=== PATIENT | female | born 1965 | race Caucasian/White ===

== ENCOUNTER → 2018-02-22 08:09 | Outpatient (POV) | payer BC, SELFPAY | PROVIDERS: Visit Provider Dentist | DX: Z00.00 Encounter for general adult medical examination without abnormal findings (principal) ==

== ENCOUNTER 2019-08-19 18:29 | Emergency (ER) | payer MEDICAID, SELFPAY ==
[2019-08-19 18:39] VITALS: BP 121/69; PULSE 83; RESP 18; TEMP 36.7; O2SAT 97; BMI 30.5
--- NOTE | 2019-08-19 18:41 | XR_ITS ---
PROCEDURE: XR WRIST LT MIN 3V CLINICAL INDICATION: FALL Posttraumatic pain, fall with injury and pain a of the COMPARISON: XR ELBOW LT MIN 3V from 08/19/2019 XR FOREARM LT 2V from 08/19/2019 XR HAND LT MIN 3V from 08/19/2019 FINDINGS: No fracture or dislocation. No lytic or blastic change. There is normal mineralization. The joint spaces are well-preserved. No significant degenerative/arthritic changes. No erosive changes evident. Other findings:None. IMPRESSION: No acute findings. Dictated by: Maksim Florence MD 08/19/2019 21:39 Electronically signed by Maksim Florence MD in [place] 08/19/2019 21:39
--- NOTE | 2019-08-19 18:41 | XR_ITS ---
PROCEDURE: XR FACIAL BONES MIN 3V CLINICAL INDICATION: FALL Posttraumatic pain COMPARISON: No exams were available for comparison FINDINGS: No obvious fracture or sinus air-fluid level. No lytic or blastic changes. IMPRESSION: No obvious fracture. Consider CT for more thorough evaluation if symptoms persist Dictated by: Maksim Florence MD 08/19/2019 21:40 Electronically signed by Maksim Florence MD in [place] 08/19/2019 21:40
--- NOTE | 2019-08-19 19:38 | HMH.EDUTC ---
[facility] Clinical Impression: Left elbow pain, Left wrist pain Nasal bone fracture Qualifiers: Encounter type: initial encounter Fracture type: closed Qualified Code(s): S02.2XXA - Fracture of nasal bones, initial encounter for closed fracture Fall Qualifiers: Encounter type: initial encounter Qualified Code(s): W19.XXXA - Unspecified fall, initial encounter Disposition: Home, Self-Care Condition on Discharge: Good Instructions: DI for Nose Fracture, DI for Wrist Sprain, DI for Elbow Sprain Additional Instructions: Rest the extremity, apply ice for 15 minutes as tolerated three or four times per day, Wear the thu wrap for compression, Elevate the extremity as tolerated while you are resting. Take ibuprofen for pain. I sent in a prescription to your pharmacy. Follow up with Dr. Bowling (ENT). I put in a referral but you need to call her office and schedule an appointment. Follow up with orthopedics (Dr. Nichols) if you continue to have wrist, elbow or hand pain. Follow up with your regular doctor. GO TO THE ER FOR ANY WORSENING SYMPTOMS Prescriptions: Ibuprofen [Ibuprofen 600mg Tablet] 600 mg PO Q6HP PRN #30 tab PRN Reason: Mild Pain Transmission Status: Received by [employer] [id number] Referrals: Arpita Jackson [Primary Care Provider] - Myah Bowling MD [Consulting Physician] - Kevin Nichols MD [Staff Physician] - Time of Disposition: 19:50 Medical Decision Making - Medical Records Medical records reviewed: No: I reviewed the patient's medical records. - Alex Inquiry Pt receiving controlled substance: No Vital Signs: 08/19/19 18:39 08/19/19 20:22 Temperature 98.0 F 98.0 F Temperature Source Oral Oral Pulse Rate 83 Pulse Rate [Radial] 83 Respiratory Rate 18 18 Blood Pressure 121/69 Blood Pressure [Right Arm] 121/69 Blood Pressure Mean [Right Arm] 86 Blood Pressure Source Automatic Cuff Blood Pressure Source [Right Arm] Automatic Cuff Blood Pressure Position Sitting Blood Pressure Position [Right Arm] Sitting 02 Sat by Pulse Oximetry 97 Oxygen Delivery Method Room Air Room Air Orders (Tests/Meds): ORDERS Category Date Time Status XR elbow LT min 3V Stat Exams 08/19/19 18:41 Taken XR facial bones min 3V Stat Exams 08/19/19 18:41 Taken XR forearm LT 2V Stat Exams 08/19/19 18:41 Taken XR hand LT min 3V Stat Exams 08/19/19 18:41 Taken XR wrist LT min 3V Stat Exams 08/19/19 18:42 Taken - Radiology Data #1 Image(s): Nasal Bones Image Reviewed: Yes I reviewed the patient's radiology image Preliminary Findings: Abnormal possible nasal fracture #2 Image(s): Wrist Image Reviewed: Yes I reviewed the patient's radiology image Preliminary Findings: No Fracture Seen #3 Image(s): Elbow Image Reviewed: Yes I reviewed the patient's radiology image Preliminary Findings: No Fracture Seen fat pads appear wnl [facility] [place] - General Stated complaint: AO 08/18 @ 1730 fell, left arm, nose, & forehead inj Time Seen by Provider: 08/19/19 18:55 Mode of Arrival: Ambulatory Source of Information: Patient Limitations: No Limitations Description of Symptoms (Recalled from Triage Doc. by RN): While at a friends house she states she fell between the kitchen and laundry room face first onto a concrete floor. States she was checked and cleared by EMS. HEENT Symptoms (Recalled from RN notes): No Resp Symptoms (Recalled from RN notes): No Skin Symptoms (Recalled from RN notes): Yes MS Symptoms (Recalled from RN notes): Yes Functional Status (Recalled from RN notes): wnl - History of Present Illness Provider Complaint: She states that she tripped at home over an extension cord. She came down on her left elbow and her nose. She had some epistaxis right after this occured, but it has stopped. She is having left elbow pain and tenderness of the bridge of her nose now. - Related Data Previous Rx's Medication Instructions Recorded Ibuprofen
[2019-08-19 20:22] VITALS: BP 121/69; PULSE 83; RESP 18; TEMP 36.7; O2SAT 97
== END 2019-08-19 20:22 | disposition home or self-care (01) ==
PROVIDERS: Emergency Provider Nurse Practitioner Family; PCP Nurse Practitioner Family
DX: S02.2XXA Fracture of nasal bones, initial encounter for closed fracture (principal); S50.02XA Contusion of left elbow, initial encounter; S60.212A Contusion of left wrist, initial encounter; W01.0XXA Fall on same level from slipping, tripping and stumbling without subsequent striking against object, initial encounter; Y92.89 Other specified places as the place of occurrence of the external cause; Z88.8 Allergy status to other drugs, medicaments and biological substances
CPT/HCPCS: 70150; 73080; 73090; 73110; 73130; 99201

== ENCOUNTER 2019-08-30 11:43 | Outpatient (RCR) | payer MEDICAID, SELFPAY | END 2019-08-30 12:10 | disposition home or self-care (01) | LOC: OT 11:43 | PROVIDERS: Visit Provider Orthopaedic Surgery | DX: S63.502A Unspecified sprain of left wrist, initial encounter (principal) | CPT/HCPCS: 97763 ==

== ENCOUNTER 2019-09-13 15:00 | Outpatient (RCR) | payer MEDICAID, SELFPAY ==
--- NOTE | 2019-09-06 12:16 | HMH.OTOPEV ---
OT Inpatient Evaluation Rehab OT Outpatient Eval Start: 09/06/19 11:41 Freq: Status: Active Protocol: Document 09/06/19 11:42 ANABELNEWTON (Rec: 09/06/19 12:16 ELPIDIO [id number]) Electronically Signed By Shila Soria OT 09/06/19 11:42 Outpatient Therapy Subjective History Subjective History 54 year old female referred to OP OT services after having a fall with tripping over extension cord resulting in left wrist sprain ~2 weeks ago. OT initial evaluation completed. Chief Complaint Pain Symptom Type Ache Symptoms Relieved By Heat,Ice,OTC Meds Symptoms Aggravated By Physical Activity Prior Functional Limitations None Current Functional Limitations Reaching,Lifting,Recreation Activity Symptom Description Intermittent Level of pain today (0-10) 0 Pain scale - at its best (0-10) 0 Pain scale - at its worst (0-10) 7 Wrist/Hand Eval Wrist Range of Motion Left Wrist Limitations of Range of Motion Pain Wrist Extension Active Range of Motion ( 50 degrees) Wrist Flexion Active Range of Motion ( 50 degrees) Wrist Radial Deviation Active Range of 20 Motion (degrees) Wrist Ulnar Deviation Passive Range of 30 Motion (degrees) Forearm Supination Active Range of 60 Motion (degrees) Forearm Pronation Active Range of Motion 60 (degrees) Wrist Manual Muscle Testing Left Wrist Extension Strength Grade 3+ Fair+ Wrist Flexion Strength Grade 3+ Fair+ Wrist Radial Deviation Strength Grade 5 Normal Wrist Ulnar Deviation Strength Grade 5 Normal Forearm Supination Strength Grade 3+ Fair+ Forearm Pronation Strength Grade 3+ Fair+ Passenger Car Upholsterer Apprentice/Pinch Strength Passenger Car Upholsterer Apprentice Strength Measurement (lbs) 35 Tip Pinch (2-point) Ability Minimal Impairment Tip Pinch (2-point) Strength Measurement 4 (lbs) Lateral Pinch Ability Minimal Impairment Lateral Pinch Strength Measurement (lbs) 10 Special Tests Froment's Sign Positive Left OT Outpatient Assessment Impairments Problems/Impairments Impaired Range of Motion, Impaired Strength,Impaired Endurance,Subjective C/O Pain Prognosis Rehab Potential Good Clinical Impression Consistent with Diagnosis Yes Short Term Goals Number of Weeks 3 Increase Range of Motion Yes: L wrist flex: 70; ext: 60 ; SUP: 70 and Pro: 70 Increase Strength Yes: Improve
== END 2019-09-13 15:05 | disposition home or self-care (01) ==
LOC: OT 15:00
PROVIDERS: PCP Nurse Practitioner Family; Visit Provider Orthopaedic Surgery
DX: S63.502A Unspecified sprain of left wrist, initial encounter (principal)
CPT/HCPCS: 97014; 97033; 97035; 97165; 97530; G0283

== ENCOUNTER → 2022-09-19 13:46 | Outpatient (POV) | payer MEDICAID, SELFPAY ==
--- NOTE | 2022-09-19 14:03 | EXP.PAIN.OV ---
HPI Data of Consult Requesting Physician: Madison Vasquez APRN Consult Narrative Reason for consult: Low back pain History of present illness: Ms. Smith is a 57 year old female who presents today as a new patient. She is a referral from Arpita Jackson's office. Today she rates her pain a 5 out of 10. Patient states her pain is all in her low back and has been going on for a few months. Patient denies any specific trauma or injury that initially led to her symptoms. She does describe it as an aching, throbbing sensation that is worse with increased activities such as bending, twisting or lifting. Patient denies any radiating symptoms into her legs. Patient has tried [id number] medications such as Tylenol and ibuprofen along with heat and ice and topicals with minimal relief. Patient is currently on a muscle relaxer of cyclobenzaprine 10 mg 3 times daily as needed and states it does help some. Patient is also prescribed diclofenac gel and meloxicam 7.5 mg daily however she states she does have a previous history of kidney disease. She does also state that she will occasionally have bilateral knee pain however she gets gel injections from an orthopedic doctor that does provide significant relief. Patient is not on any scheduled medications. Patient denies any previous back surgery or history of injections for her back pain. Her Alex is [id number]. Its been reviewed and appropriate. CC: Madison Vasquez APRN [facility] Disclaimer: The information contained in this section may have been updated after the patient was seen, as this information can be updated by other users. Social History Smoking Status: Never smoker alcohol intake: never current occupational status: other Travel in the last 8 weeks: None Review of Systems Review of Systems Review of systems (narrative): Review of Systems: General: No recent weight changes, no fever, no sleep disturbances Respiratory: No cough, no shortness of air, no recurring pulmonary infections Cardiovascular/peripheral vascular: No chest pain, no palpitations, no edema, no shortness of breath Gastrointestinal: No new onset incontinence, normal bowel movements reported Genitourinary: No new onset incontinence Musculoskeletal: Low back pain Psychiatric: [Normal mood/affect] Neurological: [Denies weakness in extremities], [denies balance issues] Meds Home Medications and Allergies Home Medications Medication Instructions Recorded Confirmed Type ibuprofen 600 mg tablet 600 mg PO Q6HP PRN Mild Pain #30 08/19/19 09/19/22 Rx tabs atorvastatin 20 mg tablet 20 mg PO DAILY Cholesterol 09/19/22 09/19/22 History cyclobenzaprine 10 mg tablet 10 mg PO TIDP PRN Pain 09/19/22 09/19/22 History diclofenac sodium 1 % topical gel 1 ea topical DIRECTED Pain 09/19/22 09/19/22 History duloxetine 60 mg capsule,delayed 60 mg PO DAILY MOOD 09/19/22 09/19/22 History release fluticasone propionate 50 50 mcg intranasal DIRECTED 09/19/22 09/19/22 History mcg/actuation nasal ALLERGIES spray,suspension meloxicam 7.5 mg tablet 7.5 mg PO DAILY Pain 09/19/22 09/19/22 History metformin 500 mg tablet 500 mg PO DIRECTED Diabetes 09/19/22 09/19/22 History olmesartan 5 mg tablet 5 mg PO DAILY BLOOD PRESSURE 09/19/22 09/19/22 History omeprazole 40 mg capsule,delayed 40 mg PO DAILY STOMACH 09/19/22 09/19/22 History release ondansetron 4 mg disintegrating 4 mg PO Q8HP PRN Nausea 09/19/22 09/19/22 History tablet tramadol 50 mg tablet 50 mg PO Q6H PRN Pain 09/19/22 09/19/22 History New Prescriptions to Start Prescriptions: Allergies Allergy/AdvReac Type Severity Reaction Status Date / Time escitalopram [From Lexapro] Allergy Verified 09/16/19 09:04 fluoxetine [From Prozac] Allergy Verified 09/16/19 09:04 hydrocodone Allergy Verified 09/16/19 09:04 pseudoephedrine Allergy Verified 09/16/19 09:04 [From Sudafed] Objective Narrative: Physical Exam: General
[2022-09-19 14:42] VITALS: BP 135/89; PULSE 95; RESP 18; O2SAT 98; BMI 29.3
== END ==
PROVIDERS: Visit Provider Nurse Practitioner Family
DX: M51.36 Other intervertebral disc degeneration, lumbar region (principal); M47.816 Spondylosis without myelopathy or radiculopathy, lumbar region
CPT/HCPCS: 99202; G0463

== ENCOUNTER 2022-10-04 09:01 | Day surgery (SDC) | payer MEDICAID, SELFPAY ==
[2022-10-04 09:18] VITALS: BP 152/87; PULSE 90; RESP 18; TEMP 36.4; O2SAT 97; BMI 30.9
[2022-10-04 09:50] VITALS: BP 137/94; PULSE 100; RESP 20
[2022-10-04 09:54] VITALS: BP 135/80; PULSE 76; RESP 18; O2SAT 99
--- NOTE | 2022-10-04 09:56 | EXP.PAIN.PRO ---
Procedure Date: 10/04/22 Time: 09:40 Anesthesiologist:: Alban Rivero CRNA Complications:: None Pre-procedure Diagnosis:: Degenerative disc lumbar spine multilevels. Lumbar radiculopathy. Lumbar spondylosis. Multilevel lumbar facet arthropathy. Post-procedure Diagnosis:: Same. Indications for Procedure:: Patient is a very pleasant 57-year-old female that comes our clinic today for lumbar medial branch blocks/facet block L4-5, L5-S1 bilaterally. Patient complains of posterior lumbar back pain. Difficulty with flexion, extension, left and right rotation. Pain intensifies with standing any length of time. She rates her pain 7/10. Procedure Details:: Informed consent was obtained and the risk and benefits of the procedure was explained to the patient. Patient was taken to the procedure room where noninvasive monitors were placed, including noninvasive blood pressure cuff as well as pulse oximeter. The area over the lumbar spine was cleansed using chlorhexidine as a cleansing solution. I anesthetized the skin and subcutaneous tissues with 1% Lidocaine. I placed 22-gauge spinal needles into the facet joint/ medial branches of [L3-L4, L4-L5, and L5-S1] bilaterally. Needle placement was confirmed with fluoroscopy. After confirmation of needle placement, each site was injected with 1 mL of 1% lidocaine and 0.25 % Marcaine and 10 mg of Depo-Medrol. A total of 80 mg of depo medrol was used for bilateral medial branch blocks of [L3-L4, L4-L5, and L5-S1] bilaterally. Patient tolerated the procedure without difficulty. There were no complications. Plan and Disposition:: Patient was discharged without incident.
== END 2022-10-04 09:55 | disposition home or self-care (01) ==
PROVIDERS: PCP Nurse Practitioner Family; Visit Provider Nurse Anesthetist, Certified Registered
DX: M47.896 Other spondylosis, lumbar region (principal); M51.16 Intervertebral disc disorders with radiculopathy, lumbar region
CPT/HCPCS: 64493; 64494; J1040

== ENCOUNTER → 2022-10-19 10:58 | Outpatient (POV) | payer MEDICAID, SELFPAY ==
--- NOTE | 2022-10-19 11:21 | A.OFFVIS_ITS ---
[facility] Pain Management SOAP Note Subjective:: Patient is a pleasant 57-year-old female who presents today for follow-up of lumbar medial branch block bilaterally L4-L5 and L5-S1 on 10/04/2022. We are currently treating the patient for degenerative disc disease of lumbar spine with lumbar radiculopathy symptoms, lumbar facet arthropathy, lumbar spondylosis. Today she rates her pain a 0 out of 10. She states she has had at least 90 to 100% relief following this injection. Patient states she has been able to increase her activity with decreased pain symptoms and feels like she has better overall function. This was her first injection from our office. Patient is currently managed with diclofenac gel and meloxicam 7.5 mg daily her Alex is [id number]. It has been reviewed and appropriate. Review of Systems: General: No recent weight changes, no fever, no sleep disturbances Respiratory: No cough, no shortness of air, no recurring pulmonary infections Cardiovascular/peripheral vascular: No chest pain, no palpitations, no edema, no shortness of breath Gastrointestinal: No new onset incontinence, normal bowel movements reported Genitourinary: No new onset incontinence Musculoskeletal: Low back pain Psychiatric: [Normal mood/affect] Neurological: [Denies weakness in extremities], [denies balance issues] Objective:: Physical Exam: General: Alert and oriented x3, no acute distress, pleasant and cooperative Lungs: Respirations even and unlabored, symmetrical chest expansion Eyes: PERRL Musculoskeletal: Flexion and extension of lumbar [spine] somewhat guarded secondary to pain, [antalgic gait noted] Neurological: Speech clear, no gross sensory deficit Assessment:: Degenerative disc disease of lumbar spine with lumbar radiculopathy symptoms, lumbar facet arthropathy, lumbar spondylosis Plan:: Patient has had significant improvement of her low back pain following her injections and does not require any additional injective therapy at this time. Patient will return to clinic in 1 month for reevaluation of symptoms and plan of care. Patient has been instructed to contact the clinic with any concerns before the next appointment. Dr. Briggs has reviewed this note and agrees with this plan of care. This note was dictated using voice recognition software and make contain errors or omissions. [facility] Disclaimer: The information contained in this section may have been updated after the patient was seen, as this information can be updated by other users. Medical History Depression Diabetes GERD (gastroesophageal reflux disease) HLD (hyperlipidemia) HTN (hypertension) Family History (Updated 10/04/22 @ 09:19 by Emily Barbosa, RN) Other No significant family history Social History (Updated 10/04/22 @ 09:19 by Emily Barbosa, RN) Smoking Status: Never smoker alcohol intake: never current occupational status: employed Travel in the last 8 weeks: None
[2022-10-19 11:52] VITALS: BP 117/90; PULSE 118; RESP 18; O2SAT 96; BMI 30.2
== END ==
PROVIDERS: PCP Nurse Practitioner Family; Visit Provider Nurse Practitioner Family
DX: M51.16 Intervertebral disc disorders with radiculopathy, lumbar region (principal); M47.26 Other spondylosis with radiculopathy, lumbar region
CPT/HCPCS: 99212; G0463

== ENCOUNTER 2022-11-13 09:30 | Emergency (ER) | payer MEDICAID, SELFPAY ==
[2022-11-13 09:39] VITALS: BP 149/80; PULSE 105; RESP 20; TEMP 36.8; O2SAT 98; BMI 30.2
--- NOTE | 2022-11-13 09:46 | HMH.EDGENADL ---
Discharge Plan Disposition Patient Disposition: Home, Self-Care Condition: Good Prescriptions Prescriptions: New cephalexin 500 mg capsule 500 mg PO QID 5 Days Qty: 20 0RF No Action ibuprofen 600 MG tablet 600 mg PO Q6HP PRN (Reason: Mild Pain) Qty: 30 0RF cyclobenzaprine 10 mg tablet 10 mg PO TIDP PRN (Reason: Pain) Patient Comments: TAKE 1 TABLET BY MOUTH THREE TIMES DAILY NEEDED metformin 500 mg tablet 500 mg PO DIRECTED atorvastatin 20 mg tablet 20 mg PO DAILY omeprazole 40 mg capsule,delayed release(DR/EC) 40 mg PO DAILY tramadol 50 mg Tablet 50 mg PO Q6H PRN (Reason: Pain) meloxicam 7.5 mg tablet 7.5 mg PO DAILY ondansetron 4 mg tablet,disintegrating 4 mg PO Q8HP PRN (Reason: Nausea) Patient Comments: DISSOLVE 1 TABLET ON THE TONGUE EVERY 8 HOURS NEEDED FOR NAUSEA OR VOMITING fluticasone propionate 50 mcg/actuation spray,suspension 50 mcg INTRANASAL DIRECTED olmesartan 5 mg tablet 5 mg PO DAILY duloxetine 60 mg capsule,delayed release(DR/EC) 60 mg PO DAILY Patient Comments: TAKE ONE CAPSULE BY MOUTH EVERY DAY diclofenac sodium 1 % gel 1 ea TOPICAL DIRECTED Referrals Follow up/Referrals: Arpita Jackson [Primary Care Provider] - See instructions Activity Restrictions/Add. Instructions Additional Instructions/Restrictions: You were evaluated in the emergency department today for wound on the right breast. On ultrasound there was no abscess, and I did not feel any associated mass. Take the prescribed antibiotics as directed, do not skip doses, do not stop taking them early. Keep the wound clean and dry, use the provided supplies and change the dressing daily until it is healed. You can also use a regular Band-Aid over it. Follow-up with your primary care physician in 2 days for reassessment to ensure that it is healing, and make an appointment for regular screening mammogram. Return to the emergency department with any new or worsening symptoms. Clinical Impressions Clinical Impression: Open wound of right female breast Instructions Patient Instructions: DI for Skin Abscess Discharge ED Provider: Adithya Mcmahon Adult [facility] General Chief complaint: Skin/Abscess/Foreign Body Stated complaint: knot on right breast Time Seen by Provider: 11/13/22 09:41 Mode of Arrival: Ambulatory Source of Information: Patient Limitations: No Limitations Description of Symptoms (Recalled from ER Triage Doc. by RN): pt to ed c/o lesion to the lateral right breast. pt reports first noticing it last night. pt denies any tenderness to the area. pt states she is unsure how long the lesion has been present. History of Present Illness HPI narrative: This 57-year-old female with a history of depression, hypertension presents to the emergency department with concerns of wound on the right breast. Patient states she noticed it for the first time last night when she was in the bath and a scab came off of it. She is unsure how long the lesion has been present. She states she does get mammograms every 2 years and is currently due for her next one. She states she had a biopsy one time of a benign lesion, but no history of cancer. Patient denies any masses, breast pain, abnormal discharge, fevers, chills, or other infectious symptoms. She states she does not wear wire bras or bathing suit and does not remember anything specific that would have irritated this area of her skin. Related Data Home Medications Medication Instructions Recorded Confirmed atorvastatin 20 mg tablet 20 mg PO DAILY Cholesterol 09/19/22 10/19/22 cyclobenzaprine 10 mg tablet 10 mg PO TIDP PRN Pain 09/19/22 10/19/22 diclofenac sodium 1 % topical gel 1 ea topical DIRECTED Pain 09/19/22 10/19/22 duloxetine 60 mg capsule,delayed 60 mg PO DAILY MOOD 09/19/22 10/19/22 release fluticasone propionate 50 50 mcg intranasal DIRECTED 09/19/22
[2022-11-13 10:00] VITALS: BP 141/87; PULSE 97; RESP 20; TEMP 36.8; O2SAT 97
== END 2022-11-13 10:02 | disposition home or self-care (01) ==
PROVIDERS: Emergency Provider Emergency Medicine; PCP Nurse Practitioner Family
DX: S21.001A Unspecified open wound of right breast, initial encounter (principal); I10 Essential (primary) hypertension; F32.A Depression, unspecified; X58.XXXA Exposure to other specified factors, initial encounter; E11.9 Type 2 diabetes mellitus without complications; K21.9 Gastro-esophageal reflux disease without esophagitis; E78.5 Hyperlipidemia, unspecified
CPT/HCPCS: 99284

== ENCOUNTER → 2022-11-18 09:16 | Outpatient (POV) | payer MEDICAID, SELFPAY ==
--- NOTE | 2022-11-18 09:43 | A.OFFVIS_ITS ---
[facility] Pain Management SOAP Note Subjective:: This patient is a very pleasant 57-year-old female comes our clinic today for follow-up visit regarding her low back pain. She describes her low back pain as constant, dull, aching. She rates pain today 09/19. Patient states pain increases with flexion, extension, left and right rotation. Patient received lumbar medial branch block bilaterally L4-5, L5-S1 on 10/19/2022. She reports 4 weeks of significant improvement terms of her overall low back pain. She estimates 90% improvement. However, the pain is returning to some degree. She is requesting a repeat of the medial branch blocks bilaterally L4-5, L5-S1. I think this is reasonable given the fact she had 90+ percent with previous round. Her Alex #[id number] has been reviewed and appropriate. Objective:: Patient is awake alert [place] x3. In no acute distress. Flexion-extension lumbar spine very guarded secondary to pain. Deep tendon reflexes upper and lower extremities normal. Motor strength upper and lower extremities normal. There is no gross sensory deficit. Gait is normal. Assessment:: Degenerative disc lumbar spine multilevels. Lumbar radiculopathy. Lumbar spondylosis. Multilevel lumbar facet arthropathy. Plan:: We will plan medial branch block L4-5, L5-S1 bilaterally. Patient will continue with NSAIDs to help control the pain. [facility] Disclaimer: The information contained in this section may have been updated after the patient was seen, as this information can be updated by other users. Medical History (Updated 11/13/22 @ 09:46 by Adithya Mcmahon MD) Depression Diabetes GERD (gastroesophageal reflux disease) HLD (hyperlipidemia) HTN (hypertension) Family History (Updated 10/04/22 @ 09:19 by Emily Barbosa RN) Other No significant family history Social History (Updated 10/04/22 @ 09:19 by Emily Barbosa RN) Smoking Status: Never smoker alcohol intake: never substance use type: denies use current occupational status: employed Travel in the last 8 weeks: None
[2022-11-18 09:57] VITALS: BP 128/88; PULSE 104; RESP 18; O2SAT 92; BMI 30.2
== END ==
PROVIDERS: PCP Nurse Practitioner Family; Visit Provider Nurse Practitioner Family
DX: M51.16 Intervertebral disc disorders with radiculopathy, lumbar region (principal); M47.26 Other spondylosis with radiculopathy, lumbar region
CPT/HCPCS: 99212; G0463

== ENCOUNTER 2022-12-06 13:06 | Day surgery (SDC) | payer MEDICAID, SELFPAY ==
[2022-12-06 13:23] VITALS: BP 137/87; PULSE 104; RESP 16; TEMP 36.6; O2SAT 97
[2022-12-06 13:27] VITALS: BP 120/82; PULSE 105; RESP 18; O2SAT 95
[2022-12-06 13:28] VITALS: BP 120/82; PULSE 106; RESP 18; O2SAT 95
[2022-12-06 13:32] VITALS: BP 134/83; PULSE 100; RESP 18; O2SAT 97
--- NOTE | 2022-12-06 13:36 | P.PCN_ITS ---
Procedure Date: 12/06/22 Time: 13:15 Anesthesiologist:: Alban Rivero CRNA Complications:: None Pre-procedure Diagnosis:: Degenerative disc lumbar spine multilevels. Lumbar radiculopathy. Lumbar spondylosis. Multilevel lumbar facet arthropathy. Post-procedure Diagnosis:: Same. Indications for Procedure:: Patient is a very pleasant 57-year-old female that comes our clinic today for lumbar medial branch block L4-5, L5-S1. Patient is had this block in the past with several months of relief. She describes low back pain as constant, dull, aching. Patient has difficulty with flexion, extension, left and right rotation. Procedure Details:: Informed consent was obtained and the risk and benefits of the procedure was explained to the patient. Patient was taken to the procedure room where noninvasive monitors were placed, including noninvasive blood pressure cuff as well as pulse oximeter. The area over the lumbar spine was cleansed using chlorhexidine as a cleansing solution. I anesthetized the skin and subcutaneous tissues with 1% Lidocaine. I placed 22-gauge spinal needles into the facet joint/ medial branches of L4-L5, and L5-S1 bilaterally. Needle placement was confirmed with fluoroscopy. After confirmation of needle placement, each site was injected with 1 mL of 1% lidocaine and 0.25 % Marcaine and 10 mg of Depo- Medrol. A total of 80 mg of depo medrol was used for bilateral medial branch blocks of L4-L5, and L5-S1 bilaterally. Patient tolerated the procedure without difficulty. There were no complications. Plan and Disposition:: Patient was discharged without incident.
== END 2022-12-06 13:32 | disposition home or self-care (01) ==
PROVIDERS: PCP Nurse Practitioner Family; Visit Provider Nurse Anesthetist, Certified Registered
DX: M47.896 Other spondylosis, lumbar region (principal); M51.16 Intervertebral disc disorders with radiculopathy, lumbar region
CPT/HCPCS: 64493; 64494; J1040

== ENCOUNTER → 2022-12-19 14:27 | Outpatient (POV) | payer MEDICAID, SELFPAY ==
[2022-12-19 14:42] VITALS: BP 146/85; PULSE 105; RESP 20
--- NOTE | 2022-12-19 14:54 | A.OFFVIS_ITS ---
[facility] Pain Management SOAP Note Subjective:: This patient is a very pleasant 57-year-old female comes our clinic today for follow-up visit after receiving bilateral lumbar L4-5, L5-S1 medial branch blocks on 12/06/2022. Patient reporting 75% improvement terms of her overall low back pain. However her right low lumbar back pain has returned about 80%. Left side lumbar spine no pain. Patient rates the pain 7/10. However, she reports no pain with sitting. No pain with lying down. Pain when standing on her feet for long periods of time. 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 Patient taking Tylenol on a regular basis for the symptoms. Patient's Alex #[id number] has been reviewed and appropriate. Patient describes the low right back pain is intermittent, dull, aching. Objective:: Patient is awake alert [place] x3. In no acute distress. Flexion-extension lumbar spine somewhat guarded secondary to pain. Deep tendon reflexes upper and lower extremities normal. Motor strength upper and lower extremities normal. There is no gross sensory deficit. Gait is normal. Assessment:: Degenerative disc lumbar spine multilevels. Lumbar radiculopathy. Lumbar spondylosis. Multilevel lumbar facet arthropathy Plan:: Discussed in detail with the patient regarding repeating lumbar medial branch block on the right L4-5, L5-S1. Discussed in detail with the patient regarding risk versus benefits. Answered her questions. She wishes to proceed. [facility] Disclaimer: The information contained in this section may have been updated after the patient was seen, as this information can be updated by other users. Medical History Depression Diabetes GERD (gastroesophageal reflux disease) HLD (hyperlipidemia) HTN (hypertension) Family History Other No significant family history Social History Smoking Status: Never smoker alcohol intake: never substance use type: denies use current occupational status: employed Travel in the last 8 weeks: None
== END ==
PROVIDERS: PCP Nurse Practitioner Family; Visit Provider Nurse Anesthetist, Certified Registered
DX: M51.16 Intervertebral disc disorders with radiculopathy, lumbar region (principal); M47.26 Other spondylosis with radiculopathy, lumbar region
CPT/HCPCS: 99212; G0463

== ENCOUNTER 2023-01-25 10:13 | Emergency (ER) | payer MEDICAID, SELFPAY ==
[2023-01-25 10:19] VITALS: BP 140/83; PULSE 92; RESP 20; TEMP 36.9; O2SAT 100; BMI 29.3
[2023-01-25 10:26] LABS: Coronavirus 19, PCR Not Detected (NotDetected); Influenza A, PCR Not Detected (NotDetected); Influenza B, PCR Not Detected (NotDetected)
[2023-01-25 10:36] LABS: Strep Scrn Group A (Rapid) Negative (Negative)
[2023-01-25 10:45] VITALS: BP 135/88; PULSE 98; O2SAT 95
--- NOTE | 2023-01-25 10:46 | HMH.EDGENADL ---
Discharge Plan Disposition Patient Disposition: Home, Self-Care Chief Complaint: Upper Respiratory Infection Prescriptions Prescriptions: No Action cephalexin 500 mg capsule 500 mg PO QID ibuprofen 600 MG tablet 600 mg PO Q6HP PRN (Reason: Mild Pain) Qty: 30 0RF cyclobenzaprine 10 mg tablet 10 mg PO TIDP PRN (Reason: Pain) Patient Comments: TAKE 1 TABLET BY MOUTH THREE TIMES DAILY NEEDED metformin 500 mg tablet 500 mg PO DIRECTED atorvastatin 20 mg tablet 20 mg PO DAILY omeprazole 40 mg capsule,delayed release(DR/EC) 40 mg PO DAILY tramadol 50 mg Tablet 50 mg PO Q6H PRN (Reason: Pain) meloxicam 7.5 mg tablet 7.5 mg PO DAILY ondansetron 4 mg tablet,disintegrating 4 mg PO Q8HP PRN (Reason: Nausea) Patient Comments: DISSOLVE 1 TABLET ON THE TONGUE EVERY 8 HOURS NEEDED FOR NAUSEA OR VOMITING fluticasone propionate 50 mcg/actuation spray,suspension 50 mcg INTRANASAL DIRECTED olmesartan 5 mg tablet 5 mg PO DAILY duloxetine 60 mg capsule,delayed release(DR/EC) 60 mg PO DAILY Patient Comments: TAKE ONE CAPSULE BY MOUTH EVERY DAY diclofenac sodium 1 % gel 1 ea TOPICAL DIRECTED Referrals Follow up/Referrals: Arpita Jackson [Primary Care Provider] - See instructions Activity Restrictions/Add. Instructions Additional Instructions/Restrictions: Call your family doctor to establish care for this visit to the emergency department and schedule follow-up within 48 hours to ensure improvement. If you have any worsening of your condition or any other concerning signs or symptoms, return to the emergency department or your primary care doctor for further evaluation. Take daily Zyrtec for symptomatic relief. Clinical Impressions Clinical Impression: Acute viral pharyngitis, URI, acute Discharge ED Provider: Fernando Batres General Adult HPI General Chief complaint: Upper Respiratory Infection Stated complaint: sore throat, drainage, vomiting Time Seen by Provider: 01/25/23 10:24 Mode of Arrival: Ambulatory Source of Information: Patient Limitations: No Limitations Description of Symptoms (Recalled from ER Triage Doc. by RN): pt to ed c/o sore throat, body aches that started yesterday morning. pt reports one episode of emesis last night. pt denies fever/urinary symptoms. History of Present Illness HPI narrative: 57-year-old female with history of diabetes, hypertension, hyperlipidemia, polycystic kidney disease presenting with sore throat, nasal drainage, body aches. This been going on about 24 hours. Patient has been taking Tylenol at home, this does not help. Not able to take Tylenol because of kidney disease. Patient states she has had constant drainage which has not gotten any better. Had some drainage last night but she actually vomited mucus on the bed. Nonbloody, nonbilious. Associated sore throat without voice changes, difficulty or pain range of motion of neck, or confusion. Patient has not had diarrhea, constipation, abdominal pain, fevers or chills. Related Data Home Medications Medication Instructions Recorded Confirmed atorvastatin 20 mg tablet 20 mg PO DAILY Cholesterol 09/19/22 12/06/22 cyclobenzaprine 10 mg tablet 10 mg PO TIDP PRN Pain 09/19/22 12/06/22 diclofenac sodium 1 % topical gel 1 ea topical DIRECTED Pain 09/19/22 12/06/22 duloxetine 60 mg capsule,delayed 60 mg PO DAILY MOOD 09/19/22 12/06/22 release fluticasone propionate 50 50 mcg intranasal DIRECTED 09/19/22 12/06/22 mcg/actuation nasal ALLERGIES spray,suspension meloxicam 7.5 mg tablet 7.5 mg PO DAILY Pain 09/19/22 12/06/22 metformin 500 mg tablet 500 mg PO DIRECTED Diabetes 09/19/22 12/06/22 olmesartan 5 mg tablet 5 mg PO DAILY BLOOD PRESSURE 09/19/22 12/06/22 omeprazole 40 mg capsule,delayed 40 mg PO DAILY STOMACH 09/19/22 12/06/22 release ondansetron 4 mg disintegrating 4 mg PO Q8HP PRN Nausea 09/19/22 12/06/22
[2023-01-25 11:00] VITALS: BP 131/88; PULSE 100; O2SAT 92
[2023-01-25 11:23] VITALS: BP 131/81; PULSE 80; RESP 16; TEMP 36.7
== END 2023-01-25 11:24 | disposition home or self-care (01) ==
LOC: ER 11:09
PROVIDERS: Emergency Provider Emergency Medicine; PCP Nurse Practitioner Family
DX: J06.9 Acute upper respiratory infection, unspecified (principal); J02.9 Acute pharyngitis, unspecified; E11.9 Type 2 diabetes mellitus without complications; I10 Essential (primary) hypertension
CPT/HCPCS: 87430; 87636; 99283; 99284

== ENCOUNTER → 2023-04-12 09:05 | Outpatient (POV) | payer MEDICAID, SELFPAY ==
--- NOTE | 2023-04-12 09:37 | EXP.PAIN.SOA ---
[facility] Pain Management SOAP Note Subjective:: Patient is a pleasant 57-year-old female who presents today for follow-up. We are currently treating the patient for degenerative disc disease of lumbar spine with lumbar radiculopathy symptoms, lumbar facet arthropathy, lumbar spondylosis. Today she rates her pain a 8 out of 10. She denies any new trauma or injury. Patient states that she is back at her baseline today. Patient did previously have 2 lumbar medial branch blocks that both provided significant improvement. She had her first injection in September 2022 providing 90-100 % improvement lasting approximately 2 months. Then the patient did end up having her second block in November that provided 75% improvement and has lasted up until the last couple of weeks. Patient states during that time she was able to increase her activity with decreased pain symptoms and had overall improved function. Patient states the pain is back all in her low back and does not radiate into her legs. She does describe this as an aching, throbbing sensation that is worse with increased activity or ambulation. She does state the pain interferes with her ability perform activities of daily living such as cooking and cleaning. Patient is interested in injection therapy. Patient is currently managed with diclofenac gel and meloxicam 7.5 mg daily her Alex has been reviewed and appropriate. Review of Systems: General: No recent weight changes, no fever, no sleep disturbances Respiratory: No cough, no shortness of air, no recurring pulmonary infections Cardiovascular/peripheral vascular: No chest pain, no palpitations, no edema, no shortness of breath Gastrointestinal: No new onset incontinence, normal bowel movements reported Genitourinary: No new onset incontinence Musculoskeletal: Low back pain Psychiatric: [Normal mood/affect] Neurological: [Denies weakness in extremities], [denies balance issues] Objective:: Physical Exam: General: Alert and oriented x3, no acute distress, pleasant and cooperative Lungs: Respirations even and unlabored, symmetrical chest expansion Eyes: PERRL Musculoskeletal: Flexion and extension of lumbar [spine] somewhat guarded secondary to pain, [antalgic gait noted] positive Kemps test Neurological: Speech clear, no gross sensory deficit Assessment:: Degenerative disc disease of lumbar spine with lumbar radiculopathy symptoms, lumbar facet arthropathy, lumbar spondylosis Plan:: Patient has had 2 successful lumbar medial branch blocks with 75% improvement up to almost 100% improvement lasting several months. I have discussed with the patient due to her worsening back pain with limited range of motion and a positive Kemps test that she may benefit from the lumbar RFA. Risk and benefits were discussed gera with the patient and she would like to proceed forward with this plan of care. Patient is not on any blood thinners. Patient will be scheduled for a lumbar RFA bilaterally L4-L5 and L5-S1 with fluoroscopy. Patient has been instructed to contact the clinic with any concerns before the next appointment. Dr. Briggs has reviewed this note and agrees with this plan of care. This note was dictated using voice recognition software and make contain errors or omissions. [facility] Disclaimer: The information contained in this section may have been updated after the patient was seen, as this information can be updated by other users. Medical History (Updated 01/25/23 @ 10:58 by Fernando Batres MD) Depression Diabetes GERD (gastroesophageal reflux disease) HLD (hyperlipidemia) HTN (hypertension) Family History Other No significant family history Social History Smoking Status: Never smoker alcohol intake: never substance use type: denies use current occupational status: employed Travel in the last 8 weeks: None
[2023-04-12 10:13] VITALS: BP 110/86; PULSE 113; RESP 18; O2SAT 96; BMI 29.7
== END ==
LOC: SC.PAIN 09:06
PROVIDERS: PCP Nurse Practitioner Family; Visit Provider Nurse Practitioner Family
DX: M51.16 Intervertebral disc disorders with radiculopathy, lumbar region (principal); M47.26 Other spondylosis with radiculopathy, lumbar region
CPT/HCPCS: 99212; G0463

== ENCOUNTER 2023-05-16 10:05 | Day surgery (SDC) | payer MEDICAID, SELFPAY ==
[2023-05-16 10:26] VITALS: BP 126/83; PULSE 125; RESP 16; TEMP 36.3; O2SAT 92; BMI 29.3
--- NOTE | 2023-05-16 10:58 | P.PCN_ITS ---
Procedure Date: 05/16/23 Time: 10:30 Anesthesiologist:: Alban Rivero CRNA Complications:: None Pre-procedure Diagnosis:: Degenerative disc lumbar spine multilevels. Lumbar radiculopathy. Lumbar facet arthropathy. Lumbar spondylosis. Post-procedure Diagnosis:: Same. Indications for Procedure:: Patient is a very pleasant 58-year-old female comes our clinic today for a lumbar L4-5, L5-S1 radiofrequency ablation. Patient had significant improvement terms of her overall low back pain with previous medial branch blocks at the same levels. She rates her pain today 7/10. Procedure Details:: Informed consent was obtained and the risk and benefits of the procedure was explained to the patient. Patient was placed prone on the procedure table. The patient was prepped and draped in sterile fashion. C-arm fluoroscopy was used to view the lumbar spine. The skin and subcutaneous tissues were anesthetized using lidocaine. I placed 20-gauge RF needles into the facet joints of L3-L4, L4-L5 and L5-S1 on the left side. We underwent sensory stimulation. There is good sensory stimulation at 0.8 V. We underwent motor stimulation. There is no motor stimulation at 2 V. We then anesthetized these levels with lidocaine and Depo- Medrol. I used a total of 40 mg Depo-Medrol for all 3 levels. I then burned all 3 levels of L3-L4, L4-5 and L5-S1 on the left side for 4 minutes at 80 ?C. Patient tolerated the procedure well with no complication Plan and Disposition:: Patient was discharged without incident.
[2023-05-16 11:00] VITALS: BP 142/85; PULSE 111; RESP 18; O2SAT 92
[2023-05-16] MEDS: LIDOCAINE 1% 5ML PF VIAL 15 ML (14:15)
[2023-05-16] MEDS: BUPIVACAINE 0.25% 10ML INJ 25 MG IJ (14:15)
[2023-05-16] MEDS: methylPREDNISolone ACETATE 80MG/ML VIAL 80 MG (14:15)
== END 2023-05-16 11:00 | disposition home or self-care (01) ==
PROVIDERS: PCP Nurse Practitioner Family; Visit Provider Nurse Anesthetist, Certified Registered
DX: M51.16 Intervertebral disc disorders with radiculopathy, lumbar region (principal); M47.816 Spondylosis without myelopathy or radiculopathy, lumbar region
CPT/HCPCS: 64635; 64636; J1040

== ENCOUNTER 2023-06-26 10:24 | Outpatient (POV) | payer MEDICAID, SELFPAY ==
[2023-06-26 10:50] VITALS: BP 147/95; PULSE 107; RESP 18; O2SAT 100; BMI 30.2
--- NOTE | 2023-06-26 11:35 | A.OFFVIS_ITS ---
[facility] Pain Management SOAP Note Subjective:: Patient is a pleasant 58-year-old female who presents today for follow-up of lumbar RFA L4-L5 and L5-S1 on 05/18/2023. Patient states her pain in her back today is insignificant out of 10. She states that she has had at least 70% improvement and is still helping. Patient does state today however that she is experiencing more pain in her neck with radiating symptoms to her bilateral shoulders and increased headaches. She rates this pain at least a 5-6 out of 10. Patient states this has been going on for at least a month if not longer. She describes it as an aching, heaviness sensation that is worse with increased activity. She does state that the pain interferes with her ability perform activities of daily living such as cooking and cleaning or even simple range of motion with her shoulders. Patient is interested in any help we may be able to provide regarding this. Patient is currently managed with diclofenac gel and meloxicam 7.5 mg daily. Her Alex has been reviewed. Review of Systems: General: No recent weight changes, no fever, no sleep disturbances Respiratory: No cough, no shortness of air, no recurring pulmonary infections Cardiovascular/peripheral vascular: No chest pain, no palpitations, no edema, no shortness of breath Gastrointestinal: No new onset incontinence, normal bowel movements reported Genitourinary: No new onset incontinence Musculoskeletal: Neck pain, bilateral shoulder pain, headache Psychiatric: [Normal mood/affect] Neurological: [Denies weakness in extremities], [denies balance issues] Objective:: Physical Exam: General: Alert and oriented x3, no acute distress, pleasant and cooperative Lungs: Respirations even and unlabored, symmetrical chest expansion Eyes: PERRL Musculoskeletal: Flexion and extension of cervical [spine] somewhat guarded secondary to pain, [antalgic gait noted] positive Spurling's test Neurological: Speech clear, no gross sensory deficit Assessment:: Degenerative disc disease of lumbar spine with lumbar facet arthropathy, lumbar spondylosis, neck pain with bilateral shoulder pain and headache Plan:: Patient is experiencing worsening pain in her neck with radiating symptoms with numbness and tingling into her bilateral shoulders and increased headaches. Patient did have limited range of motion of her cervical spine during today's visit along with a positive Spurling's test. I have discussed with the patient that she may benefit from a cervical epidural steroid injection. Risk and benefits were discussed with patient and she would like to proceed forward with this plan of care. Patient is not on any blood thinners. Patient did have significant relief from her lumbar RFA and does not require any additional injection therapy in her low back. We will schedule the patient for a CHRISTIE C6- C7 under fluoroscopy. Patient has tried and failed conservative therapy. Patient has been instructed to contact the clinic with any concerns before the next appointment. Dr. Briggs has reviewed this note and agrees with this plan of care. This note was dictated using voice recognition software and make contain errors or omissions. [facility] Disclaimer: The information contained in this section may have been updated after the patient was seen, as this information can be updated by other users. Medical History HLD (hyperlipidemia) Depression Diabetes HTN (hypertension) GERD (gastroesophageal reflux disease) Family History Other No significant family history Social History Smoking Status: Never smoker alcohol intake: never substance use type: denies use current occupational status: other Travel in the last 8 weeks: None
== END 2023-06-26 23:59 ==
LOC: SC.PAIN 10:25
PROVIDERS: PCP Nurse Practitioner Family; Visit Provider Nurse Practitioner Family
DX: M51.36 Other intervertebral disc degeneration, lumbar region (principal); M47.816 Spondylosis without myelopathy or radiculopathy, lumbar region; M54.2 Cervicalgia; M25.511 Pain in right shoulder; M25.512 Pain in left shoulder; R51.9 Headache, unspecified
CPT/HCPCS: 99212; G0463

== ENCOUNTER 2024-02-02 11:00 | Outpatient (POV) | payer MEDICAID, SELFPAY ==
[2024-02-02 11:18] VITALS: BP 143/95; PULSE 92; RESP 16; O2SAT 95; BMI 30.4
--- NOTE | 2024-02-02 11:28 | A.OFFVIS_ITS ---
[facility] Disclaimer: The information contained in this section may have been updated after the patient was seen, as this information can be updated by other users. Medical History (Updated 02/02/24 @ 11:30 by Madison Vasquez APRN) HLD (hyperlipidemia) Depression Diabetes HTN (hypertension) GERD (gastroesophageal reflux disease) Family History Other No significant family history Social History Smoking Status: Never smoker alcohol intake: never substance use type: denies use current occupational status: other PM Subjective & Objective Subjective Subjective:: Patient is a pleasant 58-year-old female who presents today for worsening pain. Today she rates her pain an 8 out of 10. Patient denies any new trauma or injury. She does state that she has been having extreme amounts of pain in her neck with radiating numbness and tingling that does go primarily down her left arm to her hand. Patient has had neck issues for longer than 6 months unchanged. Patient states however that it is just worsened progressively and that she is interested in injection therapy for additional improvement. Patient did get a lumbar RFA bilaterally L4-L5 and L5-S1 back in May that provided 70 percent improvement and she does state overall is still maintaining. Patient does state that she went to her primary care due to the worsening neck and left arm numbness and tingling and she was given a dose of steroids and she only has 1 pill left. Patient does state the pain is constant and does interfere with her ability to perform activities of daily living such as cooking and cleaning. Patient has tried and failed conservative therapy including oral medications, heat and ice, topicals, at home stretching exercise for longer than 12 weeks. Her Alex has been reviewed and is appropriate. Review of Systems: General: No recent weight changes, no fever, no sleep disturbances Respiratory: No cough, no shortness of air, no recurring pulmonary infections Cardiovascular/peripheral vascular: No chest pain, no palpitations, no edema, no shortness of breath Gastrointestinal: No new onset incontinence, normal bowel movements reported Genitourinary: No new onset incontinence Musculoskeletal: Neck pain, left shoulder pain, left arm numbness tingling Psychiatric: [Normal mood/affect] Neurological: [Denies weakness in extremities], [denies balance issues] Pain at rest (0-10 scale): 8 Objective Objective:: Physical Exam: General: Alert and oriented x3, no acute distress, pleasant and cooperative Lungs: Respirations even and unlabored, symmetrical chest expansion Eyes: PERRL Musculoskeletal: Flexion and extension of cervical [spine] somewhat guarded secondary to pain, [antalgic gait noted] positive Spurling's test, extreme point tenderness along left cervical paraspinous and left trapezius muscles Neurological: Speech clear, no gross sensory deficit Has patient had previous pain injection?: No Conservative treatment options previously tried: Home exercise plan Length of treatment: Longer than 12-week Meds Home Medications and Allergies Home Medications ?Medication ?Instructions ?Recorded ?Confirmed ?Type ibuprofen 600 mg tablet 600 mg PO Q6HP PRN Mild Pain #30 08/19/19 06/26/23 Rx tabs atorvastatin 20 mg tablet 20 mg PO DAILY Cholesterol 09/19/22 06/26/23 History cyclobenzaprine 10 mg tablet 10 mg PO TIDP PRN Pain 09/19/22 06/26/23 History diclofenac sodium 1 % topical gel 1 ea topical DIRECTED Pain 09/19/22 06/26/23 History duloxetine 60 mg capsule,delayed 60 mg PO DAILY MOOD 09/19/22 06/26/23 History release fluticasone propionate 50 50 mcg intranasal DIRECTED 09/19/22 06/26/23 History mcg/actuation nasal ALLERGIES spray,suspension meloxicam 7.5 mg tablet 7.5 mg PO DAILY Pain 09/19/22 06/26/23 History metformin 500 mg tablet 500 mg PO DIRECTED Diabetes 09/19/22 06/26/23 History olmesartan 5 mg tablet 5 mg PO DAILY BLOOD PRESSURE 09/19/22 06/26/23 History omeprazole 40 mg capsule,delayed 40 mg PO DAILY STOMACH 09/19/22 06/26/23 History release ondansetron 4 mg disintegrating 4 mg PO Q8HP PRN Nausea 09/19/22 06/26/23 History tablet tramadol 50 mg tablet 50 mg PO Q6H PRN Pain 09/19/22 06/26/23 History cephalexin 500 mg capsule 500 mg PO QID Infection 11/18/22 06/26/23 History New Prescriptions to Start Prescriptions: Allergies Allergy/AdvReac Type Severity Reaction Status Date / Time escitalopram (From Lexapro) Allergy Verified 05/16/23 10:30 fluoxetine (From Prozac) Allergy Verified 05/16/23 10:30 hydrocodone Allergy Verified 05/16/23 10:30 pseudoephedrine (From Allergy Verified 05/16/23 10:30 Sudafed) Assessment and Plan *Assessment and plan (1) Neck pain: Status: Acute Category: Medical Code(s): M54.2 - Cervicalgia (2) Cervical radiculopathy: Status: Acute Category: Medical Code(s): M54.12 - Radiculopathy, cervical region (3) Myofascial pain: Status: Acute Category: Medical Code(s): M79.18 - Myalgia, other site Plan Patient is experiencing significant pain throughout her neck with radiating numbness and tingling going down her entire left extremity. Patient did have limited range of motion of her cervical spine with a positive Spurling's test and extreme point tenderness along her left Cervical paraspinous muscles and left trapezius. I did discuss with the patient that I do believe she would benefit from a cervical epidural steroid injection. Risk and benefits were discussed with the patient and she would like to proceed forward with this plan of care. Patient is not on any blood thinners. Patient has tried and failed conservative therapy including continued at home stretching exercise for longer than 12 weeks. We will schedule the patient for a CHRISTIE C6-C7 under fluoroscopy. Patient has been instructed to contact the clinic with any concerns before the next appointment. Dr. Briggs has reviewed this note and agrees with this plan of care. This note was dictated using voice recognition software and make contain errors or omissions. All injections are used with Lidocaine or Bupivacaine and Depo Medrol.
== END 2024-02-02 23:59 | disposition home or self-care (01) ==
LOC: SC.PAIN 11:02
PROVIDERS: PCP Nurse Practitioner Family; Visit Provider Nurse Practitioner Family
DX: M54.2 Cervicalgia (principal); M54.12 Radiculopathy, cervical region; M79.18 Myalgia, other site; Z73.89 Other problems related to life management difficulty
CPT/HCPCS: 99212; G0463

== ENCOUNTER 2024-03-24 15:10 | Emergency (ER) | payer MEDICAID, SELFPAY ==
[2024-03-24 15:10] VITALS: BP 166/102; PULSE 109; RESP 16; TEMP 36.5; O2SAT 95; BMI 30.2
--- NOTE | 2024-03-24 15:16 | ECG_ITS ---
APPROVED REPORT Exam: Resting ECG HR:112 bpm ECG Measurements Heart Rate 112 AXES ID 112 P 22 QRSd 85 QRS 24 QT 342 T 21 QTc 408 Conclusion SINUS TACHYCARDIA WITH SHORT ID INTERVAL Electronically signed by : JUAN F NOLASCO, 03/24/2024 23:40:34
--- NOTE | 2024-03-24 15:24 | XR_ITS ---
PROCEDURE INFORMATION: Exam: XR Chest Exam date and time: 03/24/2024 3:22 PM Age: 59 years old Clinical indication: Other: Chest pain TECHNIQUE: Imaging protocol: Radiologic exam of the chest. Views: 2 views. PA and Lateral COMPARISON: No relevant prior studies available. FINDINGS: Tubes, catheters and devices: None. Lungs: Linear density identified within bilateral lower lungs. Evidence for lung calcified granulomas in the bilateral chest. Pleural and lung parenchymal linear scarring identified within bilateral apices. Pleural spaces: No pleural effusion identified. No pneumothorax identified. Heart/Mediastinum: Questionable small hiatal hernia. Vasculature: Mild atherosclerotic calcification demonstrated within the aorta. Bones/joints: Diffusely decreased bone density. Mild to moderate generalized bony degenerative changes. IMPRESSION: 1. Linear bilateral lower chest pulmonary atelectasis, or scarring. 2. Chronic findings. 3. Questionable small hiatal hernia.
--- NOTE | 2024-03-24 15:25 | [facility].EDCP ---
Discharge Plan Disposition Patient Disposition: Home, Self-Care Condition: Good Prescriptions Prescriptions: No Action cephalexin 500 mg capsule 500 mg PO QID ibuprofen 600 MG tablet 600 mg PO Q6HP PRN (Reason: Mild Pain) Qty: 30 0RF cyclobenzaprine 10 mg tablet 10 mg PO TIDP PRN (Reason: Pain) Patient Comments: TAKE 1 TABLET BY MOUTH THREE TIMES DAILY NEEDED metformin 500 mg tablet 500 mg PO DIRECTED atorvastatin 20 mg tablet 20 mg PO DAILY omeprazole 40 mg capsule,delayed release(DR/EC) 40 mg PO DAILY tramadol 50 mg Tablet 50 mg PO Q6H PRN (Reason: Pain) meloxicam 7.5 mg tablet 7.5 mg PO DAILY ondansetron 4 mg tablet,disintegrating 4 mg PO Q8HP PRN (Reason: Nausea) Patient Comments: DISSOLVE 1 TABLET ON THE TONGUE EVERY 8 HOURS NEEDED FOR NAUSEA OR VOMITING fluticasone propionate 50 mcg/actuation spray,suspension 50 mcg INTRANASAL DIRECTED olmesartan 5 mg tablet 5 mg PO DAILY duloxetine 60 mg capsule,delayed release(DR/EC) 60 mg PO DAILY Patient Comments: TAKE ONE CAPSULE BY MOUTH EVERY DAY diclofenac sodium 1 % gel 1 ea TOPICAL DIRECTED Referrals Follow up/Referrals: Arpita Jackson [Primary Care Provider] - See instructions Oskar Caraballo MD [Staff Physician] - See instructions Nito Sanders MD [Staff Physician] - See instructions Activity Restrictions/Add. Instructions Additional Instructions/Restrictions: You were evaluated in the emergency department today. At this time, your labs and EKG are very reassuring. Please follow-up very closely with your primary care provider. I also recommend close follow-up with cardiology given you were seen here for chest pain. Return to the emergency department right away for new or worsening symptoms. Clinical Impressions Clinical Impression: Chest pain Stand Alone Forms Stand Alone Forms: Work/School Release Instructions Patient Instructions: DI for Atypical Chest Pain Print Language Print Language: Dominican Discharge ED Provider: Madison Ferro General Chief Complaint: Chest Pain Stated Complaint: Chest pain Time Seen by Provider: 03/24/24 15:15 Mode of Arrival: EMS Source of Information: Patient Limitations: No Limitations Description of Symptoms (Recalled from ER Triage Doc. by RN): Complaint of pressure and heaviness in chest for two days. States that she took her blood pressure at home and it was 180/123. States she took 4 baby aspirin and 2 tylenol at home. Denies any pain at this moment. History of Present Illness HPI narrative: This patient is a 59-year-old female with a history of hypertension, hyperlipidemia, diabetes, depression, and GERD presenting to the emergency department for evaluation with concern for chest pressure. Patient states that she first noticed it 2 days ago when she was trying to pull her dog back inside. She was having a hard time letting her dog out to go to the bathroom because of snow and ice, and she was trying to make sure her dog did not get away or bother the cats. She was stressed and tried to pull them back and noted chest pressure, which resolved after going to bed. She was fine yesterday, and then today she was trying to feed the dogs, keep the neighbors dog out, and keep other pets from interfering. She was bent over for an extended period of time doing this and states she felt the blood hardin from her head and then developed chest pressure again. Only associated symptom was nausea. This was around 10:00 this morning. She took her blood pressure and it was 180s over 120s. She took 4 baby aspirin, 2 Tylenol, and a Zofran and got minimal improvement. She then called EMS. EMS picked her up and administer nitroglycerin for chest pain and high blood pressure. She states this helped a lot. She currently feels drained but overall states she is feeling a little bit better. No other concerns or complaints at this time. Related Data Home Medications ?Medication ?Instructions ?Recorded ?Confirmed atorvastatin 20 mg tablet 20 mg PO DAILY Cholesterol 09/19/22 02/02/24 cyclobenzaprine 10 mg tablet 10 mg PO TIDP PRN Pain 09/19/22 02/02/24 diclofenac sodium 1 % topical gel 1 ea topical DIRECTED Pain 09/19/22 02/02/24 duloxetine 60 mg capsule,delayed 60 mg PO DAILY MOOD 09/19/22 02/02/24 release fluticasone propionate 50 50 mcg intranasal DIRECTED 09/19/22 02/02/24 mcg/actuation nasal ALLERGIES spray,suspension meloxicam 7.5 mg tablet 7.5 mg PO DAILY Pain 09/19/22 02/02/24 metformin 500 mg tablet 500 mg PO DIRECTED Diabetes 09/19/22 02/02/24 olmesartan 5 mg tablet 5 mg PO DAILY BLOOD PRESSURE 09/19/22 02/02/24 omeprazole 40 mg capsule,delayed 40 mg PO DAILY STOMACH 09/19/22 02/02/24 release ondansetron 4 mg disintegrating 4 mg PO Q8HP PRN Nausea 09/19/22 02/02/24 tablet tramadol 50 mg tablet 50 mg PO Q6H PRN Pain 09/19/22 02/02/24 cephalexin 500 mg capsule 500 mg PO QID Infection 11/18/22 02/02/24 Previous Rx's ?Medication ?Instructions ?Recorded ibuprofen 600 mg tablet 600 mg PO Q6HP PRN Mild Pain #30 08/19/19 tabs Allergies Allergy/AdvReac Type Severity Reaction Status Date / Time escitalopram (From Lexapro) Allergy Verified 05/16/23 10:30 fluoxetine (From Prozac) Allergy Verified 05/16/23 10:30 hydrocodone Allergy Verified 05/16/23 10:30 pseudoephedrine (From Allergy Verified 05/16/23 10:30 Sudafed) [facility] Disclaimer: The information contained in this section may have been updated after the patient was seen, as this information can be updated by other users. Medical History HLD (hyperlipidemia) Depression Diabetes HTN (hypertension) GERD (gastroesophageal reflux disease) Family History Other No significant family history Social History Smoking Status: Never smoker alcohol intake: never substance use type: denies use current occupational status: other Travel in the last 8 weeks: None Have you lived/traveled outside [place] in past 30 days?: No Contact w/someone who lives/traveled outside [place] past 30 days?: No Exposure to someone with infectious disease in past 14 days?: No Do you have a fever (greater than 100.4 F or 38 C)?: No Have you tested positive for COVID-19: No Exposed to someone with COVID-19 in past 14 days?: No Do you have a sore throat?: No Do you have a cough?: No Do you have any weakness?: No Do you have any diarrhea?: No Are you experiencing any unusual bleeding?: No Do you have any muscle aches/pain?: No Do you have any abdominal pain?: No Are you experiencing loss of taste or smell?: No Other Medical History Have you received the Flu Vaccine for this season: Yes Have you received the Pneumonia Vaccine: No ROS Obtained: Yes All systems reviewed & no additional complaints except as documented Physical Exam General General appearance: alert, in no apparent distress and anxious Head Head exam: atraumatic and normocephalic Eye Eye exam: Present normal appearance, PERRL and EOMI ENT ENT exam: Present normal exam, normal oropharynx, mucous membranes moist and normal external ear exam Neck Neck exam: Present normal inspection, full ROM and trachea midline; Absent tenderness Chest Chest inspection: Present normal inspection and symmetric chest wall rise; Absent tenderness Respiratory Respiratory exam: Present normal lung sounds bilaterally; Absent respiratory distress, wheezes, stridor or accessory muscle use Cardiovascular Cardiovascular exam: Present normal rhythm and tachycardia Abdominal Exam Abdominal exam: Present soft; Absent distention, tenderness or guarding Extremities Exam Extremities exam: Present normal inspection, full ROM and normal capillary refill; Absent tenderness or edema Back Exam Back exam: Present normal inspection and full ROM; Absent tenderness Neurological Exam Neurological exam: Present alert, oriented X3, CN II-XII intact and normal gait; Absent motor sensory deficit Psychiatric Psychiatric exam: Present anxious Skin Skin exam: Present warm and dry HEART Score HEART Score HEART Score assessment performed?: Yes History (anamnesis): Slightly suspicious ECG: Normal Age: 45-65 years Risk factors: 3 or more risk factors Troponin: </= normal limit HEART Score: 3 Critical Care Critical Care Time Critical Care Time: No Medical Decision Making Alex Inquiry Pt receiving controlled substance: No Vital Signs Vital Signs: 03/24/24 15:10 03/24/24 15:37 03/24/24 18:04 Temperature 97.7 F Temperature Source Oral Pulse Rate 99 H 88 Pulse Rate [Radial] 109 H Respiratory Rate 16 17 18 Blood Pressure 137/86 Blood Pressure [Left Arm] 166/102 H Blood Pressure Mean [Left Arm] 123 Blood Pressure Source Blood Pressure Source [Left Arm] Automatic Cuff Blood Pressure Position [Left Arm] Sitting 02 Sat by Pulse Oximetry 95 95 96 Oxygen Delivery Method Room Air Room Air Room Air 03/24/24 18:14 Temperature 98.6 F Temperature Source Oral Pulse Rate 89 Pulse Rate [Radial] Respiratory Rate 17 Blood Pressure 135/85 Blood Pressure [Left Arm] Blood Pressure Mean [Left Arm] Blood Pressure Source Automatic Cuff Blood Pressure Source [Left Arm] Blood Pressure Position [Left Arm] 02 Sat by Pulse Oximetry Oxygen Delivery Method Room Air Lab Data Labs: Lab Results 03/24/24 15:08: WBC 9.4, RBC 4.50, Hgb 12.3, Hct 37.1, MCV 82.4, MCH 27.3, MCHC 33.2, RDW 14.5, Plt Count 304, MPV 11.5 H, Neut % (Auto) 57.5, Lymph % (Auto) 32.7, Winn % (Auto) 6.5, Eos % (Auto) 2.5, Baso % (Auto) 0.6, Neut # (Auto) 5.4, Lymph # (Auto) 3.1, Winn # (Auto) 0.6, Eos # (Auto) 0.2, Baso # (Auto) 0.1, D-Dimer 0.79 H, Sodium 136, Potassium 3.8, Chloride 103, Carbon Dioxide 25, Anion Gap 11.8, BUN 13, Creatinine 1.00, Estimated Creat Clear 74, Estimated GFR 56 L, Est GFR ( Amer) 68, Glucose 170 H, Calcium 9.7, Total Bilirubin 0.6, AST 32, ALT 28, Alkaline Phosphatase 142 H, Troponin I < 0.01, Total Protein 7.4, Albumin 4.3, Globulin 3.1, Albumin/Globulin Ratio 1.4, HCV Ab KAYLA w/Rflx PCR Qn Negative, HIV Ag/Ab Combo Qual Negative 03/24/24 17:08: Troponin I < 0.01 03/24/24 15:08 03/24/24 15:08 Response Orders (Tests/Meds): ORDERS Category Date Time Status CXR 2 view (NOT portable) [XR chest 2V] Stat Exams 03/24/24 15:24 Completed Complete Blood Count Auto Diff Stat Lab 03/24/24 15:08 Completed Comprehensive Metabolic Panel Stat Lab 03/24/24 15:08 Completed D-Dimer Stat Lab 03/24/24 15:08 Completed HIV Combo Stat Lab 03/24/24 15:08 Completed Hepatitis C Ab Qual. W/ RFX Stat Lab 03/24/24 15:08 Completed Trop I [Troponin I] Stat Lab 03/24/24 15:08 Completed Troponin I Q3H Lab 03/24/24 17:08 Completed ECG Data Tracing #1: Attestation: I reviewed this ECG and interpreted as documented below: ECG Narrative: Sinus tachycardia with short VT interval. Ventricular rate [address] changes concerning for ischemia. Normal axis ECG initial impression date: 03/24/24 ECG initial impression time: 15:18 MDM Narrative Medical Decision Narrative: In summary, this patient is a 59-year-old female presenting to the Emergency Department for evaluation of chest pressure and nausea that started initially 2 days ago and then around 10:00 this morning. Differential diagnoses considered include but are not limited to ACS, stable angina, unstable angina, anxiety, PE, hypertensive urgency, hypertensive emergency. Ruling out the most morbid conditions drove assessment. It should be noted patient's history includes hypertension, hyperlipidemia, diabetes which are not at goal therapy. This complicates all aspects of care by increasing patient's risk for morbidity. I reviewed patient's past medical records and noted prior pain management evaluations for cervical radiculopathy. On exam, the patient is sitting upright in bed in no acute distress. She is slightly anxious. She is tachycardic in the 1 teens and has blood pressure 160s over 100s on cardiac telemetry. Cardiopulmonary auscultation is reassuring and she has equal pulses bilaterally. Unfortunately, PERC criteria cannot be used to exclude PE given tachycardia and age greater than 50, though I do not feel it is a likely cause of her symptoms. Based on intermittent nature/reassuring exam, doubt aortic pathology such as dissection. Workup included CBC, CMP, troponin, D-dimer, chest x-ray, EKG. Patient received ASA and nitroglycerine [employer], so these were not given here. EKG does not demonstrate any acute ST changes concerning for ischemia, though patient is mildly tachycardic.. I independently interpreted chest x-ray prior to the radiologist read and noted no acute focal consolidation, no pneumothorax. Please see their read for final interpretation. Labs were obtained that demonstrated D-dimer that is negative per years criteria. CBC and chemistry reassuring with negative troponin. On reassessment, patient continues to state that she is feeling better. She noted she had not yet taken her evening propranolol, and after she did take this her blood pressure and heart rate normalized. At 1715, patient was placed in ED observation status pending second troponin to determine whether or not the patient would be appropriate for discharge versus admission. The patient was provided serial reevaluations and cardiac monitoring while awaiting ultimate disposition. Second troponin resulted and is also negative. On reassessment, patient continues to state that she is feeling better with normal vital signs on cardiac telemetry. I feel she has a very low risk because of chest pain, which could be musculoskeletal in the setting of pulling and holding her dog's back versus anxiety/stress related. Given her risk factors, I did recommend close cardiology follow-up. Given reassuring workup and exam, it is felt that the patient is appropriate for discharge at 1815. Total ED observation time was 1 hour. Strict return precautions were given as well as instructions for close follow-up.
[2024-03-24 15:29] LABS: Basophils # 0.1 K/mm3 (0-0.2); Basophils % 0.6 % (0.1-2.0); Eosinophils # 0.2 K/mm3 (0.0-0.4); Eosinophils % 2.5 % (0.1-12.0); Hematocrit 37.1 % (37.0-47.0); Hemoglobin 12.3 g/dL (12.2-16.2); Lymphocytes # 3.1 K/mm3 (0.7-4.5); Lymphocytes % 32.7 % (10-50); Mean Corpuscular HGB Conc 33.2 g/dL (31.8-35.4); Mean Corpuscular Hemoglobin 27.3 pg (27.0-31.2); Mean Corpuscular Volume 82.4 fl (81-99); Mean Platelet Volume 11.5 fl (7.4-10.4); Monocytes # 0.6 K/mm3 (0.1-1.0); Monocytes % 6.5 % (1.7-9.3); Neutrophils # 5.4 K/mm3 (1.8-7.8); Neutrophils % 57.5 % (37.0-80.0); Platelet Count 304 K/mm3 (142-424); Red Cell Distribution Width 14.5 % (11.5-17.5); White Blood Count 9.4 K/mm3 (4.8-10.8)
[2024-03-24 15:37] VITALS: PULSE 99; RESP 17; O2SAT 95
[2024-03-24 15:45] LABS: D-Dimer 0.79 ug/mL (0.0-0.5)
[2024-03-24 15:47] LABS: Albumin Level 4.3 g/dl (3.5-5.0); Chloride 103 mmol/L (98-107); Potassium 3.8 mmoL/L (3.5-5.1); Sodium 136 mmol/L (136-145)
[2024-03-24 15:50] LABS: Alanine Aminotransferase 28 U/L (12-78); Albumin/Globulin Ratio 1.4 (1.1-1.8); Alkaline Phosphatase 142 U/L (38-126); Anion Gap 11.8 mEq/L (5-15); Aspartate Amino Transferase 32 U/L (14-36); Bilirubin,Total 0.6 mg/dl (0.2-1.3); Blood Urea Nitrogen 13 mg/dl (7-17); Calcium 9.7 mg/dl (8.4-10.2); Carbon Dioxide 25 mmol/L (22.0-30.0); Creatinine Clearance Estimated 74 mL/min (50-200); Estimated Glomerular Filt Rate 56 ml/min (>60); GFR (African American) 68 ML/MIN (>60); Globulin 3.1 g/dL (1.3-3.2); Glucose 170 mg/dl (74-100); Total Protein,Serum 7.4 g/dl (6.3-8.2)
[2024-03-24 15:59] LABS: Troponin I < 0.01 ng/ml (0.00-0.034)
[2024-03-24 16:34] LABS: HIV Combo NEGATIVE (Negative)
[2024-03-24 16:42] LABS: Hepatitis C Ab Qual. W/ RFX NEGATIVE (Negative)
[2024-03-24 17:54] LABS: Troponin I < 0.01 ng/ml (0.00-0.034)
[2024-03-24 18:04] VITALS: BP 137/86; PULSE 88; RESP 18; O2SAT 96
[2024-03-24 18:14] VITALS: BP 135/85; PULSE 89; RESP 17; TEMP 37; O2SAT 96
--- NOTE | 2024-03-24 18:26 | PC.NURSE ---
Called pt's friend, Samantha, for a ride home. She will be here shortly. Pt updated with this information
== END 2024-03-24 18:27 | disposition home or self-care (01) ==
PROVIDERS: Emergency Provider Emergency Medicine; PCP Nurse Practitioner Family
DX: R07.9 Chest pain, unspecified (principal)
CPT/HCPCS: 71046; 80053; 84484; 85025; 85378; 86803; 87389; 93005; 99284